=== PATIENT | male | born 1965 | race African-American/Black ===

== ENCOUNTER 2021-02-05 19:58 | Emergency (ER) | payer SELFPAY ==
[~2021-02-05] VITALS: Ht 182.9 cm; Wt 80.0 kg
[2021-02-05] MEDS ORDERED: NO HOME MEDS (20:09)
--- NOTE | 2021-02-05 20:20 | NUR ---
Pt is wet from the rain. Shaking. Given warm blankets, sandwich, juice, and jello. Will change pt into dry close.
[2021-02-05 20:45] VITALS: BP 124/93
[2021-02-05 21:13] LABS: BASOPHILS # (AUTO) 0.1 X10'3 (0-0.2); EOSINOPHILS % (AUTO) 0.3 % (0-6); HEMATOCRIT 37.3 % (42.0-52.0); HEMOGLOBIN 12.4 g/dl (14.0-17.9); LYMPHOCYTES # (AUTO) 2.3 X10'3 (1.1-4.8); MEAN CORPUSCULAR HEMOGLOBIN 31.9 PG (27.0-31.0); MEAN CORPUSCULAR HGB CONC 33.3 g/dL (33.0-36.5); MEAN CORPUSCULAR VOLUME 95.9 FL (78-98); MEAN PLATELET VOLUME 6.6 FL (7.4-10.4); MONOCYTES # (AUTO) 0.4 X10'3 (0-0.9); MONOCYTES % (AUTO) 8.1 % (2-12); NEUTROPHILS # (AUTO) 2.1 X10'3 (1.8-7.7); NEUTROPHILS % (AUTO) 42.6 % (42-75); PLATELET COUNT 460 X10'3 (140-440); RED BLOOD COUNT 3.89 X10'6 (4.70-6.10); RED CELL DISTRIBUTION WIDTH 16.9 % (11.5-14.5); WHITE BLOOD COUNT 4.8 X10'3 (4.5-11.0)
[2021-02-05 21:28] LABS: ALANINE AMINOTRANSFERASE 32 U/L (12-78); ALBUMIN 3.7 G/DL (3.4-5.0); ALBUMIN/GLOBULIN RATIO 0.9 (1.1-1.5); ALKALINE PHOSPHATASE 88 IU/L (46-116); ANION GAP 9 (8-16); ASPARTATE AMINO TRANSFERASE 59 U/L (10-37); BILIRUBIN,TOTAL 0.7 MG/DL (0.1-1.0); BLOOD UREA NITROGEN 12 MG/DL (7-18); BUN/CREATININE RATIO 13.3 (5.4-32.0); CHLORIDE 105 MMOL/L (99-107); ETHANOL 0.265 GM/DL (0.0-0.010); GLUCOSE 91 MG/DL (70-104); POTASSIUM 3.5 MMOL/L (3.5-5.1); SODIUM 141 MMOL/L (135-145); TOTAL CARBON DIOXIDE 27.2 MMOL/L (24-32); TOTAL PROTEIN 7.8 G/DL (6.4-8.2); eGFR 88 ML/MIN
--- NOTE | 2021-02-05 22:50 | NUR ---
Pt given clean dry clothes, sandwich, juice, cheese, and jello. Given d/c instructions. Wheelchair to taxi. Taxi to [facility].
== END 2021-02-05 22:56 | disposition home or self-care (01) ==
LOC: ER 19:59
DX: F12.90 Cannabis use, unspecified, uncomplicated (principal); R07.89 Other chest pain; M54.50 Low back pain, unspecified; R26.89 Other abnormalities of gait and mobility; F17.210 Nicotine dependence, cigarettes, uncomplicated; Z72.89 Other problems related to lifestyle; E11.9 Type 2 diabetes mellitus without complications; Z59.00 Homelessness unspecified; F10.129 Alcohol abuse with intoxication, unspecified; Y90.8 Blood alcohol level of 240 mg/100 ml or more
CPT/HCPCS: 36415; 71045; 80053; 80320; 84484; 85025; 93005; 99285

== ENCOUNTER 2021-02-17 22:04 | Emergency (ER) | payer OTHER ==
[~2021-02-17] VITALS: Ht 180.3 cm; Wt 75.0 kg
[~2021-02-17 22:04] MED LIST: NO HOME MEDS
[2021-02-17 22:10] VITALS: BP 126/94
[2021-02-17] MEDS ORDERED: normal saline 1000ml 1,000 ML IV ONE (22:45)
[2021-02-17] MEDS ORDERED: LIDOcaine Viscous 15ml cup MM ONE (22:45)
[2021-02-17] MEDS ORDERED: mag hydrox/Alum hydrox/simeth 30ml oral suspension PO ONE (22:45)
== END 2021-02-18 00:13 | disposition home or self-care (01) ==
LOC: ER 22:04
DX: F10.929 Alcohol use, unspecified with intoxication, unspecified (principal); K21.9 Gastro-esophageal reflux disease without esophagitis; F17.210 Nicotine dependence, cigarettes, uncomplicated; Z59.00 Homelessness unspecified; Z56.0 Unemployment, unspecified
CPT/HCPCS: 93005; 99284

== ENCOUNTER 2021-02-19 19:55 | Emergency (ER) | payer OTHER, MEDICARE ==
[~2021-02-19] VITALS: Ht 182.9 cm; Wt 65.9 kg
[2021-02-19] MEDS ORDERED: normal saline 1000ml 1,000 ML IV ONE ×2 (20:55)
[2021-02-20 03:17] VITALS: BP 145/94
== END 2021-02-20 03:19 | disposition home or self-care (01) ==
LOC: ER 19:55
DX: F10.129 Alcohol abuse with intoxication, unspecified (principal); F12.90 Cannabis use, unspecified, uncomplicated; Z56.0 Unemployment, unspecified; Z59.00 Homelessness unspecified; Z72.89 Other problems related to lifestyle; Y90.9 Presence of alcohol in blood, level not specified
CPT/HCPCS: 96360; 96361; 99283; J7030

== ENCOUNTER 2021-02-22 15:50 | Emergency (ER) | payer OTHER, MEDICARE ==
[~2021-02-22] VITALS: Ht 180.3 cm; Wt 68.0 kg
[2021-02-22 15:57] VITALS: BP 92/60
== END 2021-02-22 16:35 | disposition home or self-care (01) ==
LOC: ER 15:51
DX: F10.129 Alcohol abuse with intoxication, unspecified (principal); R47.81 Slurred speech; F12.90 Cannabis use, unspecified, uncomplicated; Z72.89 Other problems related to lifestyle; Z56.0 Unemployment, unspecified; Z59.00 Homelessness unspecified; Y90.9 Presence of alcohol in blood, level not specified
CPT/HCPCS: 99283